=== PATIENT | male | born 1995 | race Asian ===

== ENCOUNTER 2016-12-15 10:44 | Emergency (ER) | payer BC ==
[~2016-12-15] VITALS: Ht 176.5 cm; Wt 68.4 kg
[2016-12-15 10:50] VITALS: TEMP 37; Ht 176.5 cm; Wt 68.4 kg
[2016-12-15] MEDS ORDERED: AMOX875T3 PO (11:46)
[2016-12-15 11:54] VITALS: BP 112/62; PULSE 66; O2SAT 98
--- NOTE | 2016-12-15 12:16 | EMERGENCY ROOM VISIT NOTE ---
ED Visit Note First contact with patient: 11:33 Chief Complaint: Sore throat. History of Present Illness: Mr. De Leon is a 21-year-old male who ambulates into the ED complaining of throat pain. Patient reports his pain started 2 days ago and has been constant. She describes his pain as a deep achy sensation with left-sided prominence. He rates his discomfort 6/10. The pain is nonradiating. The pain worsens with swallowing. He has not identified any alleviating factors related to the pain. Associated with his pain he reports she's been having fevers with highest one of 101F, he has had nasal congestion with drainage, productive cough of a reddish sputum and mild intermittent headaches. He has been using ibuprofen for his symptoms with mild relief of his pain and moderate relief of his fevers. Additionally he reports that he saw a white exudative material on the left tonsil yesterday. He denies chills, sweats, skin eruptions, skin color changes, dizziness, lightheadedness, visual changes, hearing changes, difficulty speaking, difficulty swallowing, difficulty ambulating/coronary body movements, voice changes, painful talking, drooling, neck pain/stiffness, shortness of breath, wheezing, palpitations, orthopnea, dependent edema, previous clots, claudication. Her Review of Systems: As noted above in history of present illness. All re reviewed and found to be negative as noted above. Past Medical History: Patient denies. Current Medications: Patient denies. Allergies to Medications: Patient denies. Social History: Patient is currently University student; he feels safe in his home environment; he denies tobacco use and admits to alcohol use. Physical Examination: Vital Signs: Date Time Temp Pulse Resp B/P Pulse Ox O2 Delivery O2 Flow Rate FiO2 12/15/16 11:54 66 17 112/62 98 12/15/16 11:26 Room Air 12/15/16 10:50 37.0 79 17 98 Room Air GENERAL: 21-year-old male in mild distress due to pain, nontoxic-appearing, afebrile and hemodynamically stable. NEUROLOGICAL: Awake, alert and oriented to person, place and time. Answering questions appropriately and following commands. Normal gait. Good hand eye coordination. SKIN: Warm, dry and pink. No soft tissue eruptions noted. HEENT: Atraumatic and normocephalic. External ear is nontender. Auditory canals are pink and pink. Tympanic membranes are pearly hawley with normal light reflex. PERRLA. EOMI. Sclera white and conjunctiva pink. No nasal drainage but audible congestion. Oral cavity moist and pink. Uvula is midline and no abscesses were seen. Posterior pharyngeal area is mildly erythematous and edematous. Left tonsil was slightly more enlarged than the right but there was no deformity of the airway. Speech deepend but not hoarse. No lymphadenopathy. No laryngeal tenderness. Trachea midline. No jugular venous distention. BACK: No tenderness over the bony cervical spine. Full range of motion of the cervical spine. THORAX: Lungs sounds are clear to auscultation and equal bilaterally with symmetrical chest wall. No wheezing, rales or rhonchi. ED Course: Patient is assessed as noted above. Rapid Strep Screen: Negative. Culture pending. Patient was educated about tonight's findings and instructed on history and plan ; he verbalizes understanding and agreement with this plan. Clinical Impression: Acute tonsillitis. Disposition: Patient discharged in stable condition; prior to departure he was reassessed and subjectively reported he was feeling better and rated his discomfort 2/10. Plan: Patient was encouraged to alternate ibuprofen and acetaminophen as needed for pain or fevers. Patient was prescribed amoxicillin 875 mg 3 times a day for 7 days. Patient was encouraged to stay well-hydrated and use mechanical soft diet. Patient was encouraged to follow-up at [facility] for recheck in 3-5 days. Patient was encouraged return the ED for worsening pain, worsening fevers, vomiting, neck pain/stiffness, coughing up additional red light mucous, shortness of breath or any new/concerning symptoms.
== END 2016-12-15 11:55 | disposition home or self-care (01) ==
LOC: C.EDB 10:46 → C.EDC 11:55
DX: J03.90 Acute tonsillitis, unspecified (principal); R05 Cough; R51 Headache